=== PATIENT | male | born 1965 | race Two or more races ===

== ENCOUNTER 2023-08-02 20:36 | Emergency (ER) | payer SELFPAY ==
[~2023-08-02] VITALS: Ht 162.6 cm; Wt 73.0 kg
[2023-08-02 20:56] VITALS: BP 120/67; PULSE 73; RESP 16; O2SAT 98
[2023-08-02 21:30] LABS: Urine Bacteria FEW /hpf (None Seen); Urine Blood Negative /uL (Negative); Urine Clarity HAZY (Clear); Urine Color Yellow (Yellow); Urine Protein, UAD Negative (Negative); Urine Specific Gravity 1.022 (1.001-1.035); Urine Urobilinogen Normal (Negative); Urine WBC 2 /hpf (0 - 3); Urine pH 6.5 (5.0-8.0)
== END 2023-08-03 03:30 | disposition left against medical advice (07) ==
LOC: ER 20:36
DX: R10.30 Lower abdominal pain, unspecified (principal); Z53.21 Procedure and treatment not carried out due to patient leaving prior to being seen by health care provider
CPT/HCPCS: 81001